=== PATIENT | male | born 1985 | race Asian ===

== ENCOUNTER 2023-02-25 01:00 | Emergency (ER) | payer BC, OTHER ==
[~2023-02-25] VITALS: Ht 178 cm; Wt 82.0 kg
[2023-02-25] MEDS ORDERED: LACTATED RINGERS 1,000 ML IV ONE ×2 (01:15→02:15)
[2023-02-25] MEDS ORDERED: NS IV 1000 ML 1,000 ML IV SCH (01:15)
[2023-02-25 01:32] LABS: BASOPHILS # (AUTO) 0.1 10^3/uL (0.0-0.1); BASOPHILS % (AUTO) 1 % (0-10); EOSINOPHILS # (AUTO) 0.6 10^3/uL (0.0-0.3); EOSINOPHILS % (AUTO) 7 % (0-10); HEMATOCRIT 40 % (40-54); HEMOGLOBIN 13.5 g/dL (13.3-17.7); LYMPHOCYTES % (AUTO) 35 % (12-44); MEAN CORPUSCULAR HEMOGLOBIN 30 pg (25-34); MEAN CORPUSCULAR HGB CONC 34 g/dL (32-36); MEAN CORPUSCULAR VOLUME 89 fL (80-99); MEAN PLATELET VOLUME 9.4 fL (9.0-12.2); MONOCYTES # (AUTO) 0.7 10^3/uL (0.0-1.0); MONOCYTES % (AUTO) 8 % (0-12); NEUTROPHILS # (AUTO) 4.3 10^3/uL (1.8-7.8); NEUTROPHILS % (AUTO) 49 % (42-75); PLATELET COUNT 276 10^3/uL (130-400); WHITE BLOOD COUNT 8.7 10^3/uL (4.3-11.0)
[2023-02-25 01:36] LABS: INR 1.1 (0.8-1.4); PROTHROMBIN TIME PATIENT 14.1 SEC (12.2-14.7)
[2023-02-25 01:38] LABS: ALBUMIN 3.9 GM/DL (3.2-4.5)
[2023-02-25 01:39] LABS: CALCIUM 9.2 MG/DL (8.5-10.1); FIBRIN DEGRADATION PRODUCTS 0.35 UG/ML (0.00-0.49)
[2023-02-25 01:40] LABS: GLUCOSE 117 MG/DL (70-105); TOTAL PROTEIN 7.4 GM/DL (6.4-8.2)
[2023-02-25 01:41] LABS: CARBON DIOXIDE 22 MMOL/L (21-32)
[2023-02-25 01:42] LABS: BILIRUBIN,TOTAL 0.4 MG/DL (0.1-1.0)
[2023-02-25 01:44] LABS: ALKALINE PHOSPHATASE 72 U/L (40-136); CREATININE SERUM 1.06 MG/DL (0.60-1.30); GFR ESTIMATED 93
[2023-02-25 01:45] LABS: BUN/CREATININE RATIO 16
[2023-02-25 01:47] LABS: ALANINE AMINOTRANSFERASE 18 U/L (0-55); CREATINE KINASE 158 U/L (30-200); MAGNESIUM 1.9 MG/DL (1.6-2.4)
[2023-02-25 01:53] LABS: ACETAMINOPHEN < 10 UG/ML (10-30); CREATINE KINASE MB 2.2 NG/ML (<6.6); ERYTHROCYTE SEDIMENTATION RATE 11 MM/HR (0-15)
[2023-02-25 01:57] LABS: CHLORIDE 107 MMOL/L (98-107); POTASSIUM 3.3 MMOL/L (3.6-5.0); SODIUM 139 MMOL/L (135-145)
[2023-02-25] MEDS ORDERED: KCL 10 MEQ TAB (MICRO K) PO ONE (02:15)
--- NOTE | 2023-02-25 02:15 | ED Syncope ---
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 NOT WITNESSED. PT DENIES ANY INJURY FROM THE INCIDENT PT DENIES PAIN ANYWHERE NO NAUSEA/VOMITING NO HEADACHE NO CHEST PAIN NO SHORTNESS OF BREATH NO PALPITATIONS NO DIZZINESS AT THIS TIME NO LOSS OF BOWEL OR BLADDER CONTROL NO ABDOMINAL APIN NO CHEST PAIN NO SHORTNESS OF BREATH ACCUCHECK 107 DONE UPSTAIRS PT TAKES LOSARTAN FOR HTN, NO RECENT MEDICATION CHANGES BP NORMALLY IN 130'S SYSTOLIC STATES THIS HAPPENED ONCE BEFORE ABOUT 5 YEARS AGO, AFTER STRENUOUS ACTIVITY PT DENIES ANY STRENUOUS ACTIVITY TODAY PT HAS EATEN AND DRANK NORMALLY TODAY. NO FEVER OR RECENT ILLNESS. 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, AND HE GETS HIS BLOOD PRESSURE MEDICATION FROM THEM Allergies and Home Medications Allergies Coded Allergies: No Known Drug Allergies (Unverified , 02/25/23) Review of Systems Constitutional: see HPI, diaphoresis, dizziness, weakness EENTM: no symptoms reported Respiratory: no symptoms reported Cardiovascular: see HPI; No chest pain, No edema, No palpitations; syncope Gastrointestinal: no symptoms reported Genitourinary: no symptoms reported Musculoskeletal: no symptoms reported Skin: no symptoms reported Psychiatric/Neurological: See HPI; Denies Headache, Denies Numbness, Denies Paresthesia, Denies Seizure, Denies Tingling, Denies Tremors, Denies Weakness Past [place]-Goog[place] Hx Patient Social History Tobacco Use?: No Substance use?: No Alcohol Use?: Yes Alcohol Frequency: Rarely Pt feels they are or have been: No Past Medical History Surgery/Hospitalization HX: HLD Surgeries: No Respiratory: No Cardiac: Yes Hypertension Neurological: No Genitourinary: No Gastrointestinal: No Musculoskeletal: No Endocrine: No HEENT: No Cancer: No Psychosocial: No Integumentary: No Physical Exam Vital Signs Vital Signs - First Documented 02/25/23 01:00 Temp 36.0 Pulse 88 Resp 14 B/P (MAP) 119/82 (94) Pulse Ox 97 O2 Delivery Room Air Capillary Refill : Less Than 3 Seconds Height, Weight, BMI Height: '" Weight: lbs. oz. kg; 25.00 BMI Method: General Appearance: WD/WN, Other (LETHARGIC, KEEPS EYES CLOSED) HEENT: PERRL/EOMI, Normal ENT Inspection Neck: Full Range of Motion, Normal Inspection, Non Tender, Supple Cardiovascular: Regular Rate, Rhythm, No Edema, No JVD, No Murmur, Normal Peripheral Pulses Respiratory: Normal Breath Sounds, No Accessory Muscle Use, No Respiratory Distress Gastrointestinal: Normal Bowel Sounds, No Organomegaly, No Pulsatile Mass, Non Tender, Soft Extremities: Normal Inspection, No Pedal Edema Neurologic/Psychiatric: Alert, Oriented x3, No Motor/Sensory Deficits, audio/video technician II- XII Norm as Tested Motor/Sensory: No Motor Deficit, No Sensory Deficit Skin: Normal Color (DARK SKINNED), Diaphoresis (WARM) Progress/Results/Core Measures Results/Orders Lab Results Laboratory Tests Test 02/25/23 01:12 02/25/23 02:11 Range/Units White Blood Count 8.7 4.3-11.0 10^3/uL Red Blood Count 4.44 4.30-5.52 10^6/uL Hemoglobin 13.5 13.3-17.7 g/dL Hematocrit 40 40-54 % Mean Corpuscular Volume 89 80-99 fL Mean Corpuscular Hemoglobin 30 25-34 pg Mean Corpuscular Hemoglobin Concent 34 32-36 g/dL Red Cell Distribution Width 12.4 10.0-14.5 % Platelet Count 276 130-400 10^3/uL Mean Platelet Volume 9.4 9.0-12.2 fL Immature Granulocyte % (Auto) 1 % Neutrophils (%) (Auto) 49 42-75 % Lymphocytes (%) (Auto) 35 12-44 % Monocytes (%) (Auto) 8 0-12 % Eosinophils (%) (Auto) 7 0-10 % Basophils (%) (Auto) 1 0-10 % Neutrophils # (Auto) 4.3 1.8-7.8 10^3/uL Lymphocytes # (Auto) 3.0 1.0-4.0 10^3/uL Monocytes # (Auto) 0.7 0.0-1.0 10^3/uL Eosinophils # (Auto) 0.6 H 0.0-0.3 10^3/uL Basophils # (Auto) 0.1 0.0-0.1 10^3/uL Immature Granulocyte # (Auto) 0.1 0.0-0.1 10^3/uL Erythrocyte Sedimentation Rate 11 0-15 MM/HR Prothrombin Time 14.1 12.2-14.7 SEC INR Comment 1.1 0.8-1.4 Activated Partial Thromboplast Time 28 24-35 SEC D-Dimer 0.35 0.00-0.49 UG/ML Sodium Level 139 135-145 MMOL/L Potassium Level 3.3 L 3.6-5.0 MMOL/L Chloride Level 107 98-107 MMOL/L Carbon Dioxide Level 22 21-32 MMOL/L Anion Gap 10 5-14 MMOL/L Blood Urea Nitrogen 17 7-18 MG/DL Creatinine 1.06 0.60-1.30 MG/DL Estimat Glomerular Filtration Rate 93 BUN/Creatinine Ratio 16 Glucose Level 117 H 70-105 MG/DL Calcium Level 9.2 8.5-10.1 MG/DL Corrected Calcium 9.3 8.5-10.1 MG/DL Magnesium Level 1.9 1.6-2.4 MG/DL Total Bilirubin 0.4 0.1-1.0 MG/DL Aspartate Amino Transf (AST/SGOT) 14 5-34 U/L Alanine Aminotransferase (ALT/SGPT) 18 0-55 U/L Alkaline Phosphatase 72 40-136 U/L Total Creatine Kinase 158 30-200 U/L Creatine Kinase MB 2.2 <6.6 NG/ML Troponin I < 0.028 <0.028 NG/ML C-Reactive Protein High Sensitivity 0.10 0.00-0.50 MG/DL B-Type Natriuretic Peptide < 10.0 <100.0 PG/ML Total Protein 7.4 6.4-8.2 GM/DL Albumin 3.9 3.2-4.5 GM/DL Acetaminophen Level < 10 L 10-30 UG/ML Serum Alcohol < 10 <10 MG/DL Urine Color DARK YELLOW Urine Clarity CLEAR Urine pH 6.0 5-9 Urine Specific [place] >=1.030 1.016-1.022 Urine Protein TRACE H NEGATIVE Urine Glucose (UA) NEGATIVE NEGATIVE Urine Ketones NEGATIVE NEGATIVE Urine Nitrite NEGATIVE NEGATIVE Urine Bilirubin NEGATIVE NEGATIVE Urine Urobilinogen 0.2 < = 1.0 MG/DL Urine Leukocyte Esterase NEGATIVE NEGATIVE Urine RBC (Auto) NEGATIVE NEGATIVE Urine RBC NONE /HPF Urine WBC 0-2 /HPF Urine Crystals NONE /LPF Urine Bacteria NEGATIVE /HPF Urine Casts PRESENT /LPF Urine Hyaline Casts 0-2 H /LPF Urine Mucus LARGE H /LPF Urine Culture Indicated NO Urine Opiates Screen NEGATIVE NEGATIVE Urine Oxycodone Screen NEGATIVE NEGATIVE Urine Methadone Screen NEGATIVE NEGATIVE Urine Propoxyphene Screen NEGATIVE NEGATIVE Urine Barbiturates Screen NEGATIVE NEGATIVE Ur Tricyclic Antidepressants Screen NEGATIVE NEGATIVE Urine Phencyclidine Screen NEGATIVE NEGATIVE Urine Amphetamines Screen NEGATIVE NEGATIVE Urine Methamphetamines Screen NEGATIVE NEGATIVE Urine Benzodiazepines Screen NEGATIVE NEGATIVE Urine Cocaine Screen NEGATIVE NEGATIVE Urine Cannabinoids Screen NEGATIVE NEGATIVE My Orders Orders - GILMAR HESTER DO Ed Iv/Invasive Line Start (02/25/23 01:08) Ekg Tracing (02/25/23 01:08) Monitor-Rhythm Ecg Trace Only (02/25/23 01:08) Acetaminophen (02/25/23 01:08) Alcohol (02/25/23 01:08) Bnp [place] (02/25/23 01:08) Cbc With Automated Diff (02/25/23 01:08) Comprehensive Metabolic Panel (02/25/23 01:08) Creatine Kinase (02/25/23 01:08) Creatine Kinase Mb (02/25/23 01:08) Hs C Reactive Protein (02/25/23 01:08) Fibrin Degradation Products (02/25/23 01:08) Drug Screen Stat (Urine) (02/25/23 01:08) Magnesium (02/25/23 01:08) Protime With Inr (02/25/23 01:08) Partial Thromboplastin Time (02/25/23 01:08) Ua Culture If Indicated (02/25/23 01:08) Erythrocyte Sedimentation Rate (02/25/23 01:08) Troponin I Antoni (02/25/23 01:08) Ed Iv/Invasive Line Start (02/25/23 01:08) Lactated Ringers (Lr 1000 Ml Iv Solution (02/25/23 01:15) Ed Iv/Invasive Line Start (02/25/23 01:15) Ns Iv 1000 Ml (Sodium Chloride 0.9%) (02/25/23 01:15) Potassium Chloride (Tablet) (Klor Con Ta (02/25/23 02:15) Ed Iv/Invasive Line Start (02/25/23 02:05) Lactated Ringers (Lr 1000 Ml Iv Solution (02/25/23 02:15) Medications Given in ED Current Medications Medications Dose Ordered Sig/Yamila Route Start Time Stop Time Status Last Admin Dose Admin Lactated Ringer's 1,000 ml @ 0 mls/hr Q0M ONCE IV 02/25/23 02:15 02/25/23 02:16 DC 02/25/23 02:13 0 MLS/HR Potassium Chloride 20 meq ONCE ONCE PO 02/25/23 02:15 02/25/23 02:16 DC 02/25/23 02:13 20 MEQ Vital Signs/I&O 02/25/23 01:00 Temp 36.0 Pulse 88 Resp 14 B/P (MAP) 119/82 (94) Pulse Ox 97 O2 Delivery Room Air Blood Pressure Mean: 94 Progress Progress Note : Progress Note GIVEN: -IV FLUIDS -KCL 0200--PT SITTING UP ON SIDE OF BED, STATES HE FEELS A LITTLE DIZZY. BP 107 SYSTOLIC, HR IN 80'S. ADDITIONAL FLUIDS ORDERED. BP 123 SYSTOLIC AT TIME OF DISMISSAL, PT FEELING MUCH BETTER AND IS NO LONGER DIZZY Departure Impression Primary Impression: Syncope Additional Impression: Hypovolemia Disposition: 01 HOME, SELF-CARE Condition: Improved Departure-Patient Inst. Decision time for Depature: 02:52 Referrals: UNKNOWN (PCP/Family) Primary Care Physician Patient Instructions: Syncope (Fainting) (DC), Dehydration, Adult ED Add. Discharge Instructions: INCREASE YOUR FLUID INTAKE--DRINK ENOUGH SO YOU ARE URINATING EVERY 2-3 HOURS WHILE AWAKE CONTINUE YOUR REGULAR MEDICATION PRESCRIBED FOLLOW UP WITH YOUR DR NEEDED, RETURN TO ER IF SYMPTOMS WORSEN All discharge instructions reviewed with patient and/or family. Voiced understa nding. GILMAR HESTER DO Feb 25, 2023 02:15
[2023-02-25 02:19] LABS: BILIRUBIN,URINE NEGATIVE (NEGATIVE); CLARITY,URINE CLEAR; COLOR,URINE DARK YELLOW; GLUCOSE, URINE (UA) NEGATIVE (NEGATIVE); KETONES,URINE NEGATIVE (NEGATIVE); LEUKOCYTE ESTERASE ,URINE NEGATIVE (NEGATIVE); NITRITE,URINE NEGATIVE (NEGATIVE); PROTEIN,URINE TRACE (NEGATIVE)
[2023-02-25 02:31] LABS: AMPHETAMINE SCREEN, URINE NEGATIVE (NEGATIVE); BACTERIA,URINE NEGATIVE /HPF; BARBITURATE SCREEN URINE NEGATIVE (NEGATIVE); BENZODIAZEPINES SCREEN URINE NEGATIVE (NEGATIVE); CANNABINOID SCREEN, URINE NEGATIVE (NEGATIVE); COCAINE SCREEN URINE NEGATIVE (NEGATIVE); HYALINE CASTS, URINE 0-2 /LPF; METHADONE STAT NEGATIVE (NEGATIVE); OPIATE SCREEN URINE NEGATIVE (NEGATIVE); OXYCODONE STAT NEGATIVE (NEGATIVE); PROPOXYPHENE STAT NEGATIVE (NEGATIVE); TRICYCLIC ANTIDEPRESSANTS SCRE NEGATIVE (NEGATIVE); WBC,URINE 0-2 /HPF
[2023-02-25 03:01] VITALS: BP 127/78
== END 2023-02-25 03:04 | disposition home or self-care (01) ==
LOC: ER 01:11
DX: E86.1 Hypovolemia (principal); I10 Essential (primary) hypertension; Z79.899 Other long term (current) drug therapy
CPT/HCPCS: 80053; 80306; 81000; 82550; 82553; 83735; 83880; 84484; 85025; 85379; 85610; 85652; 85730; 86141; 93041; 99284; G0480 ×2; 36415; 80320; 80329; 93005